=== PATIENT | female | born 1985 | race Caucasian/White ===

== ENCOUNTER 2017-10-05 01:40 | Emergency (ER) | payer SELFPAY ==
[2017-10-05 01:48] VITALS: O2SAT 100
--- NOTE | 2017-10-05 02:12 | C.PDOC ---
History Of Present Illness 32 year old female is brought to the ED by EMS for suspected alcohol abuse. As per EMS patient had been drinking beer at the bar and was reportedly found walking into traffic. Patient admits to drinking beer tonight. Patient denies any complaints, fever, chills, SOB, CP, trauma, SI/HI, hallucinations. Time Seen by Provider: 10/05/17 01:41 Chief Complaint (Nursing): Substance Abuse History Per: Patient, EMS History/Exam Limitations: intoxication Onset/Duration Of Symptoms: Hrs Current Symptoms Are (Timing): Still Present Suicide/Self Injury Attempted (Context): None Modifying Factor(s): Alcohol Associated Symptoms: denies: Depression, Suicidal Thoughts, Suicidal Plan Recent travel outside of the [place]: No Additional History Per: Patient, EMS Past Medical History Reviewed: Historical Data, Nursing Documentation, Vital Signs Vital Signs: Last Vital Signs Temp 97 F L 10/05/17 05:41 Pulse 100 H 10/05/17 05:41 Resp 20 10/05/17 05:41 BP 148/70 10/05/17 05:41 Pulse Ox 100 10/05/17 05:41 - Medical History PMH: No Chronic Diseases Surgical History: No Surg Hx Family History: States: Unknown Family Hx - Social History Hx Alcohol Use: Yes Hx Substance Use: (unknown) - Immunization History Hx Tetanus Toxoid Vaccination: (unknown) Hx Influenza Vaccination: (unknown) Hx Pneumococcal Vaccination: (unknown) Review Of Systems Except As Marked, All Systems Reviewed And Found Negative. Psych: Negative for: Depression, Suicidal ideation Physical Exam - Physical Exam Appears: Non-toxic, No Acute Distress, Other (intoxicated) Skin: Normal Color, Warm, Dry Head: Atraumatic, Normacephalic Eye(s): bilateral: Normal Inspection Oral Mucosa: Moist Neck: Normal ROM, Supple Chest: Symmetrical Cardiovascular: Rhythm Regular Respiratory: Normal Breath Sounds, No Rales, No Rhonchi, No Wheezing Gastrointestinal/Abdominal: Soft, No Tenderness, No Guarding, No Rebound Extremity: Normal ROM, No Tenderness, No Swelling Neurological/Psych: Oriented x3 ED Course And Treatment O2 Sat by Pulse Oximetry: 100 (ON RA) Pulse Ox Interpretation: Normal Medical Decision Making Medical Decision Making: suspect etoh - pending clincal sobriety pt observed 4 hours initially needed restraints as agitated. pt observed pending clinical sobriety. now awake alert, i nnad. ambulatory steady gait.stable for dc Disposition - Disposition Disposition: HOME/ ROUTINE Disposition Time: 06:00 Condition: STABLE Additional Instructions: return to er with worsening symptoms or concerns. Instructions: Alcohol Use - When Is Drinking a Problem?, Alcohol Abuse and Alcoholism (DC) Forms: Penneo (Maori) Print Language: SWISS - Clinical Impression Clinical Impression: Alcohol abuse - Scribe Statement The provider has reviewed the documentation as recorded by the Scribe Wilfredo Vaca All medical record entries made by the Scribe were at my direction and personally dictated by me. I have reviewed the chart and agree that the record accurately reflects my personal performance of the history, physical exam, medical decision making, and the department course for this patient. I have also personally directed, reviewed, and agree with the discharge instructions and disposition.
[2017-10-05 05:41] VITALS: RESP 20
[2017-10-05 05:42] VITALS: BP 148/70; PULSE 100
[2017-10-05 05:50] VITALS: TEMP 97
== END 2017-10-05 05:45 | disposition home or self-care (01) ==
LOC: C.ER 01:40
DX: F10.10 Alcohol abuse, uncomplicated (principal)